=== PATIENT | female | born 1985 | race Caucasian/White ===

== ENCOUNTER 2017-11-30 11:40 | Inpatient (IN) | payer BC, OTHER ==
[2017-11-30] VITALS (33 sets, daily range): BP systolic 106–136; BP diastolic 62–84
[~2017-11-30] VITALS: Ht 167.6 cm; Wt 67.7 kg
[~2017-11-30 11:40] MED LIST: DOCU100C37 PO; IBUP-1780 PO; OXYC-465 PO
[2017-11-30] MEDS ORDERED: D5 LR IV SOLUTION 1,000 ML IV ONE (11:43)
[2017-11-30] MEDS ORDERED: D5 LR IV SOLUTION 1,000 ML IV SCH (12:22)
[2017-11-30] MEDS ORDERED: LACTATED RINGERS 1,000 ML IV ONE (12:27)
[2017-11-30] MEDS ORDERED: LIDOCAINE/EPI 2% 1:200,00 (XYLOCAINE) 10 ML VIAL INJ PRN (12:30)
[2017-11-30] MEDS ORDERED: CLINDAMYCIN 900 MG/50 ML IVPB 50 ML IV SCH (12:30)
[2017-11-30] MEDS ORDERED: CATHETER FLUSH 10 ML SYR IV PRN (12:30)
[2017-11-30 12:32] LABS: BASOPHILS % (AUTO) 0 % (0-10); EOSINOPHILS % (AUTO) 1 % (0-10); HEMATOCRIT 36 % (35-52); LYMPHOCYTES # (AUTO) 1.4 X 10^3 (1.0-4.0); LYMPHOCYTES % (AUTO) 20 % (12-44); MEAN CORPUSCULAR HEMOGLOBIN 28 PG (25-34); MEAN CORPUSCULAR HGB CONC 34 G/DL (32-36); MEAN CORPUSCULAR VOLUME 84 FL (80-99); MEAN PLATELET VOLUME 11.9 FL (7.4-10.4); MONOCYTES # (AUTO) 0.5 X 10^3 (0.0-1.0); MONOCYTES % (AUTO) 8 % (0-12); NEUTROPHILS % (AUTO) 71 % (42-75); PLATELET COUNT 151 10^3/uL (130-400); RED BLOOD COUNT 4.25 10^6/uL (4.35-5.85); RED CELL DISTRIBUTION WIDTH 13.3 % (10.0-14.5)
[2017-11-30 12:33] LABS: BILIRUBIN,URINE NEGATIVE (NEGATIVE); CLARITY,URINE CLEAR; COLOR,URINE YELLOW; GLUCOSE, URINE (UA) NEGATIVE (NEGATIVE); KETONES,URINE NEGATIVE (NEGATIVE); LEUKOCYTE ESTERASE ,URINE 1+ (NEGATIVE); NITRITE,URINE NEGATIVE (NEGATIVE); PH,URINE 6 (5-9); PROTEIN,URINE NEGATIVE (NEGATIVE); UROBILINOGEN,URINE NORMAL (NORMAL)
[2017-11-30 12:40] LABS: BACTERIA,URINE FEW /HPF
[2017-11-30] MEDS ORDERED: SUFENTA 0.6MCG/ML BUPIVA 0.125 100 ML ONE (13:12)
[2017-11-30] MEDS ORDERED: OXYTOCIN/NORMAL SALINE 500 ML IV SCH (13:58)
[2017-11-30] MEDS ORDERED: MEASLES,MUMPS,RUBELLA 1 EA INJ SC ONE (14:00)
[2017-11-30] MEDS ORDERED: TETANUS,DIPTH,PERTUSS P/F (BOOSTRIX) 0.5 ML VIAL IM ONE (14:00)
[2017-11-30] MEDS ORDERED: BENZOCAINE/MENTHOL (DERMOPLAST) 56 ML CAN TP PRN (14:00)
[2017-11-30] MEDS ORDERED: ONDANSETRON 4 MG/2 ML (SDV) Z0FRAN IVP PRN (14:00)
[2017-11-30] MEDS ORDERED: LACTATED RINGERS 1,000 ML IV SCH (14:02)
--- NOTE | 2017-11-30 14:02 | History & Physical ---
History and Physical Date Seen by Provider: Nov 30, 2017 Time Seen by Provider: 14:00 This patient is a 32-year-old white female whose first delivery occurring in less than 2 hours of labor. She was seen in clinic on this date and found to be having occasional contractions but was dilated between 4-5 cm where 4 days ago she was less than 2 cm. Presenting part is the vertex at the +1 to +2 station. Her sister is significant for GBS positive urine culture. She denied ruptured membranes or bleeding. She was sent to labor and delivery for management including prophylactic antibiotics for GBS. Allergies are to penicillin Medications are vitamins Past medical history, past surgical history, obstetric history, family history, social histories are per the antepartum record HEENT exam is normal Neck is supple no lymphadenopathy no thyromegaly Abdomen is gravid soft nontender nondistended Extreme show no clubbing cyanosis. There is no Homans sign. OB exam is as noted above. Assessment and plan 38-6/7 weeks' gestation in labor with a history of rapid progress and a history of a GBS positive culture. Patient has been admitted and started on Cleocin for GBS prophylaxis secondary to intolerance of penicillins. We anticipate a vaginal delivery probably early afternoon Allergies and Home Medications Allergies Coded Allergies: Penicillins (Unverified Allergy, Unknown, 10/28/11) Home Medications Docusate Sodium 100 Mg Capsule, 100 MG PO BID Prescribed by: HAILEY SHEARER on 07/30/16 0739 Ibuprofen 800 Mg Tablet, 800 MG PO Q6HR Prescribed by: HAILEY SHEARER on 07/30/16 0739 Oxycodone HCl/Acetaminophen 1 Each Tablet, 1-2 TAB PO Q4H PRN for PAIN Prescribed by: HAILEY SHEARER on 07/30/16 0739 Patient Home Medication List Home Medication List Reviewed: Yes Clinical Quality Measures DVT/VTE Risk/Contraindication: Risk Factor Score Per Nursin RFS Level Per Nursing on Admit: 1=Low/No VTE PPX HAILEY SILVA MD Nov 30, 2017 2:02 pm
[2017-11-30] MEDS ORDERED: METOCLOPRAMIDE INJ 10 MG/2 ML (REGLAN) IV PRN (14:15)
[2017-11-30] MEDS ORDERED: diphenhydrAMINE 50 MG/ML INJ (BENADRYL) IV PRN (14:15)
[2017-11-30] MEDS ORDERED: EPIDURAL (SUFENTA 0.6MCG/ML BUPIVA 0.125%) 100 ML BAG EPI SCH (14:15)
[2017-11-30] MEDS ORDERED: ONDANSETRON 4 MG/2 ML (SDV) Z0FRAN IV PRN (14:15)
[2017-11-30] MEDS ORDERED: NALOXONE 0.4 MG/ML 1 ML (NARCAN) VIAL IV PRN ×2 (14:15)
[2017-11-30] MEDS: KETOROLAC 30 MG/ML VIAL IV SCH ×2 (17:23→23:45)
[2017-11-30] MEDS ORDERED: METHYLERGONOVINE 0.2 MG/ML (METHERGINE) AMP ONE (17:28)
[2017-11-30] MEDS ORDERED: METHYLERGONOVINE 0.2 MG/ML (METHERGINE) AMP IM ONE (18:00)
[2017-11-30] MEDS: DOCUSATE SODIUM 100 MG (COLACE) CAP PO SCH (20:15)
--- NOTE | 2017-12-01 03:18 | OPERATIVE REPORT ---
DATE OF SERVICE: 11/30/2017 DELIVERY NOTE The patient delivered by term spontaneous vaginal delivery at 38 and 5/7 weeks gestation a viable male with Apgars of 8 and 9 at 1 and 5 minutes respectively, weight of 7 pounds 14 ounces, time of 17:09 and cord ABG that is pending. The delivery was accomplished over a midline episiotomy that was performed as the perineum distended with the baby in an OP ____ that gradually rotated to an OA as the baby delivered. The episiotomy was performed per the patient's request as she could not push the baby through the perineum. Episiotomy was performed under the local augmentation of the epidural with 1% Lidocaine with epinephrine in the perineum. The infant delivered promptly episiotomy. The was bulb suctioned on delivery of the head and again on completion of delivery. The umbilical cord was doubly clamped, father cut the cord and the baby was passed to mom's abdomen. The placenta delivered spontaneously Peoples. It was quite large, but normal with a 3-vessel cord. The cervix, vagina, rectum and perineum were examined after delivery of the placenta. The midline episiotomy was repaired in the usual manner with a 3-0 Vicryl suture. There were no other repairs required as the other tissue was intact. Sponge and needle counts were correct on completion of the delivery and repair. Estimated blood loss was around 400 mL. The patient was given a dose of Methergine IM at 0.2 mg secondary to some persistent recurrent uterine atony. The blood loss was controlled with good bedside care from the nurse with uterine massage and eventually with the Methergine. The mom remained in the LDR for recovery and the baby remained with the mom. Job ID: [id number] DocumentID: [id number] Dictated Date: 11/30/2017 17:37:21 Process Specialist Date: 12/01/2017 03:17:40 Dictated By: HAILEY SILVA MD
[2017-12-01 04:21] VITALS: BP 96/53
[2017-12-01] MEDS: oxyCODONE/APAP 10/325MG (PERCOCET 10) TABLET PO PRN ×2 (04:21→12:20)
[2017-12-01] MEDS: KETOROLAC 30 MG/ML VIAL IV SCH (06:46)
--- NOTE | 2017-12-01 07:58 | Progress Note-Standard ---
Standard Progress Note Progress Notes/Assess & Plan Date Seen by Provider: Dec 01, 2017 Time Seen by Provider: 07:57 Progress/Assessment & Plan This patient without complaint. She is ambulating, voiding, tolerating well, has good pain control. Vital Signs Date Time Temp Pulse Resp B/P (MAP) Pulse Ox O2 Delivery O2 Flow Rate FiO2 12/01/17 04:21 97.2 66 18 96/53 (67) 98 Room Air 11/30/17 23:45 97.6 72 18 108/62 (77) 98 Room Air 11/30/17 20:15 98.1 87 18 114/73 (87) 98 Room Air 11/30/17 18:45 98.4 73 18 109/77 (88) Room Air 11/30/17 18:30 78 18 106/67 (80) Room Air 11/30/17 18:15 73 18 123/63 (83) Room Air 11/30/17 18:10 98.1 11/30/17 18:00 71 18 118/65 (82) Room Air 11/30/17 17:45 71 18 112/66 (81) Room Air 11/30/17 17:40 98.4 11/30/17 17:30 71 18 116/71 (86) Room Air 11/30/17 17:27 71 18 110/74 (86) Room Air 11/30/17 17:21 98.6 11/30/17 17:15 98.6 75 18 111/65 (80) Room Air 11/30/17 17:09 85 18 119/73 (88) Room Air 11/30/17 16:50 98.0 75 18 124/75 (91) 100 Room Air 11/30/17 16:45 69 18 120/79 (93) 100 Room Air 11/30/17 16:30 69 18 100 Room Air 11/30/17 16:15 98.4 97 18 136/79 (98) 100 Room Air 11/30/17 16:00 69 18 109/67 (81) 100 Room Air 11/30/17 15:45 69 18 110/70 (83) 99 Room Air 11/30/17 15:30 98.1 77 18 116/78 (91) 100 Room Air 11/30/17 15:15 75 18 115/81 (92) 100 Room Air 3/12/18 15:00 67 18 118/75 (89) 100 Room Air 11/30/17 14:45 75 18 109/76 (87) 100 Room Air 11/30/17 14:30 70 18 120/79 (93) 100 Room Air 11/30/17 14:15 94 18 120/78 (92) 100 Room Air 11/30/17 14:00 99.1 74 18 114/67 (83) 100 Room Air 11/30/17 13:53 75 18 116/69 (85) 100 Room Air 11/30/17 13:48 70 18 115/78 (90) 100 Room Air 11/30/17 13:46 73 18 114/78 (90) 100 Room Air 11/30/17 13:45 71 18 119/84 (96) 100 Room Air 11/30/17 13:40 75 18 121/84 (96) 100 Room Air 11/30/17 13:34 73 18 115/80 (92) 100 Room Air 11/30/17 13:30 75 18 116/75 (89) Room Air 11/30/17 13:28 73 18 116/75 (89) Room Air 11/30/17 13:00 68 18 111/73 (86) Room Air 11/30/17 11:51 75 18 113/80 (91) Room Air I & O 12/01/17 06:59 Intake Total 1050 ml Balance 1050 ml Vital signs are stable. Patient is afebrile. Fundus is firm below the umbilicus and nontender. Extremities show no clubbing or cyanosis. There is no Homans sign. Assessment and plan day number 1 status post spontaneous vaginal delivery doing well. Plan is routine convalescent. May discharge home tomorrow HAILEY SILVA MD Dec 01, 2017 7:58 am
[2017-12-01] MEDS ORDERED: IBUP-1780 PO (08:00)
[2017-12-01] MEDS ORDERED: OXYC-465 PO (08:00)
[2017-12-01] MEDS ORDERED: DOCU100C37 PO (08:00)
--- NOTE | 2017-12-01 08:01 | Discharge Instructions ---
Discharge Instructions Discharge Medications New, Converted or Re-Newed RX: RX on Chart Patient Instructions Patient Instructions: As directed Return to The Hospital For: As directed Activity & Diet Discharge Diet: No Restrictions Activity as Tolerated: No Orders-Post D/C & Referrals Follow Up Appt: Call to make follow up appt. for patient in 4 weeks. Activity Per routine post vaginal delivery instructions. Diet as tolerated Patient may shower or tub bathe as desired. HAILEY SILVA MD Dec 01, 2017 8:01 am
[2017-12-01 10:30] VITALS: BP 105/71
[2017-12-01] MEDS: DOCUSATE SODIUM 100 MG (COLACE) CAP PO SCH (10:30)
[2017-12-01] MEDS ORDERED: IBUPROFEN 800 MG (MOTRIN) TAB PO SCH (14:00)
--- NOTE | 2017-12-01 14:52 | Anesthesia-Regional Post-Op ---
Regional Patient Condition Mental Status: Alert, Oriented x3 Circulation: Same as Pre-Op Headache: Absent Sensation: Full Recovery Motor Block: Absent Post Op Complications Complications None Follow Up Care/Instructions Patient Instructions None needed. Anesthesia/Patient Condition Patient was seen by JUANCHO Morrissey this morning and she was doing well, no complaints, stable vital signs, no apparent adverse anesthesia problems. When I went to see patient at 1415, she was discharged but RN reported no complications related to anesthesia. BERTIN REDD DO Dec 01, 2017 14:52
== END 2017-12-01 12:35 | disposition home or self-care (01) | DRG 774 ==
LOC: LDRP 11:40
PROVIDERS: ADMIT Obstetrics & Gynecology; ATTEND Obstetrics & Gynecology
PROC: 10E0XZZ Delivery of Products of Conception, External Approach (ICD-10-PCS; principal; 2017-11-30)
PROC: 0W8NXZZ Division of Female Perineum, External Approach (ICD-10-PCS; 2017-11-30)
DX: O26.893 Other specified pregnancy related conditions, third trimester (principal); O99.820 Streptococcus B carrier state complicating pregnancy; O72.1 Other immediate postpartum hemorrhage; O09.893 Supervision of other high risk pregnancies, third trimester; Z3A.38 38 weeks gestation of pregnancy; Z37.0 Single live birth
CPT/HCPCS: 36415; 81000; 85025; 86850; 86900; 86901; 87077; 87088

== ENCOUNTER 2020-05-21 08:43 | Inpatient (IN) | payer OTHER ==
[2020-05-21] VITALS (26 sets, daily range): BP systolic 100–118; BP diastolic 60–75
[~2020-05-21] VITALS: Ht 167.7 cm; Wt 76.9 kg
--- NOTE | 2020-05-21 08:43 | NUR ---
CHAU OCAMPO presented to unit from Home, accompanied by , with c/o C/O CONTRACTIONS. CHAU OCAMPO S weighed, gowned, voided, and to bed. EFHM and TOCO applied, VS taken. CHAU OCAMPO S oriented to bed controls, call light, TV, heat, and A/C controls.
--- NOTE | 2020-05-21 09:45 | NUR ---
Dr. Tim notified of patient's arrival, complaints, exam, and EFM/TOCO tracing. New orders received.
[2020-05-21] MEDS ORDERED: D5 LR IV SOLUTION 1,000 ML IV ONE (09:48)
[2020-05-21] MEDS: DOCUSATE SODIUM 100 MG (COLACE) CAP PO SCH (09:50)
[2020-05-21] MEDS ORDERED: D5 LR IV SOLUTION 1,000 ML IV SCH (10:00)
[2020-05-21] MEDS: D5 LR IV SOLUTION 1,000 ML IV SCH (12:10)
[2020-05-21] MEDS ORDERED: OXYTOCIN PRE-MIX DRIP 500 ML IV SCH ×2 (12:10→18:01)
--- NOTE | 2020-05-21 12:15 | NUR ---
Report received from sunita RIVERS at this time. Pt status being changed from clinic to inpatient. Pt will get epidural, RN is to call Dr Turcios after epidural is placed, will come up to [facility] after epidural.
[2020-05-21 12:18] LABS: BASOPHILS % (AUTO) 0 % (0-10); EOSINOPHILS % (AUTO) 1 % (0-10); HEMATOCRIT 30 % (35-52); HEMOGLOBIN 9.8 G/DL (11.5-16.0); LYMPHOCYTES # (AUTO) 1.2 X 10^3 (1.0-4.0); LYMPHOCYTES % (AUTO) 17 % (12-44); MEAN CORPUSCULAR HEMOGLOBIN 27 PG (25-34); MEAN CORPUSCULAR HGB CONC 33 G/DL (32-36); MEAN CORPUSCULAR VOLUME 81 FL (80-99); MEAN PLATELET VOLUME 10.7 FL (7.4-10.4); MONOCYTES # (AUTO) 0.5 X 10^3 (0.0-1.0); MONOCYTES % (AUTO) 7 % (0-12); NEUTROPHILS # (AUTO) 5.3 X 10^3 (1.8-7.8); NEUTROPHILS % (AUTO) 75 % (42-75); PLATELET COUNT 152 10^3/uL (130-400); RED CELL DISTRIBUTION WIDTH 13.7 % (10.0-14.5); WHITE BLOOD COUNT 7.1 10^3/uL (4.3-11.0)
[2020-05-21 12:18] LABS: BILIRUBIN,URINE NEGATIVE (NEGATIVE); CLARITY,URINE CLEAR; COLOR,URINE YELLOW; GLUCOSE, URINE (UA) NEGATIVE (NEGATIVE); KETONES,URINE NEGATIVE (NEGATIVE); LEUKOCYTE ESTERASE ,URINE NEGATIVE (NEGATIVE); NITRITE,URINE NEGATIVE (NEGATIVE); PROTEIN,URINE NEGATIVE (NEGATIVE)
[2020-05-21 12:25] LABS: BACTERIA,URINE NEGATIVE /HPF; SQUAMOUS EPITHELIAL CELL,UR 0-2 /HPF; WBC,URINE RARE /HPF
[2020-05-21] MEDS ORDERED: fentaNYL 2 mcg/ml BUPIVA 0.125 100 ML ONE (12:55)
[2020-05-21] MEDS ORDERED: LIDOCAINE PF 2% 5 ML (XYLOCAINE) VIAL ONE (13:08)
[2020-05-21] MEDS ORDERED: BUPIVACAINE 0.25% 30 ML (SENSORCAINE) VIAL ONE (13:08)
[2020-05-21] MEDS ORDERED: fentaNYL INJECTION 100 MCG/2 ML AMP ONE (13:08)
--- NOTE | 2020-05-21 13:15 | History & Physical ---
History and Physical Date Seen by Provider: May 21, 2020 Time Seen by Provider: 12:10 this patient presented with complaint oyear-old gravid female currently at almost 38 weeks gestation.patient denies rupture membranes or bleeding Her GBS culture was negative.she has had no problems with this . She has demonstrated change demonstrated change i from 3.5 cm to almost 6 cm now allergies are to penicillin Medications are vitamins. Medical social and surgical histories a are per the antepartum record HEENT exam is normal Neck is supple Heart has a regular rhythm Chest is clear auscultation bilaterally Abdomen is gravid soft nontender Extremities show no clubbing or cyanosi Pelvic exam shows a cervix 6 cm dilate and 0 to +1 station vertex presentation Assessment and plan 37+ week in labor. Patient and we anticipate a vaginal delivery. She will be allo an epidural 37 week spontaneous labor Allergies and Home Medications Allergies Coded Allergies: Penicillins (Unverified Allergy, Unknown, 10/28/11) Home Medications Docusate Sodium 100 Mg Capsule, 100 MG PO BID Prescribed by: HAILEY SHEARER on 12/01/17 0800 Ibuprofen 800 Mg Tablet, 800 MG PO Q6H Prescribed by: HAILEY SHEARER on 12/01/17 0800 Oxycodone HCl/Acetaminophen 1 Each Tablet, 1-2 TAB PO Q4HR PRN for PAIN-MODERATE Prescribed by: HAILEY SHEARER on 12/01/17 0800 Patient Home Medication List Home Medication List Reviewed: Yes HAILEY SILVA MD May 21, 2020 13:15
[2020-05-21] MEDS ORDERED: LACTATED RINGERS 1,000 ML IV SCH (13:37)
[2020-05-21] MEDS ORDERED: ONDANSETRON 4 MG/2 ML (SDV) Z0FRAN IV PRN (13:45)
[2020-05-21] MEDS ORDERED: EPIDURAL (fentaNYL 2 MCG/ML BUPIVA 0.125%)100 ML BAG EPI PRN (13:45)
[2020-05-21] MEDS ORDERED: NALOXONE 0.4 MG/ML 1 ML (NARCAN) VIAL IV PRN (13:45)
[2020-05-21] MEDS ORDERED: diphenhydrAMINE 50 MG/ML INJ (BENADRYL) IV PRN (13:45)
--- NOTE | 2020-05-21 14:00 | NUR ---
Dr iTm notified that pt has received epidural, is comfortable, and RN ready for Dr to come [facility] at any time.
--- NOTE | 2020-05-21 15:10 | NUR ---
Matheus Marie CRNA (auto parts salesperson) is notified at this time epidural seems to be wearing off. Pt CO pain with UC regardless of bolus doses.
--- NOTE | 2020-05-21 15:20 | NUR ---
Sancho Banks at bedside for epidural eval
--- NOTE | 2020-05-21 16:00 | NUR ---
Dr Tim updated on pt report at this time. SVE 7cm by this RN. Sitting high fowlers now for increased cervical pressure, pitocin rate at 12, UC 2-3 min apart. FHT strip reactive, looks good at this time. No new orders received.
--- NOTE | 2020-05-21 17:00 | NUR ---
Dr Tim called by this RN. pt 10cm, feeling pressure with UC. coming for delivery. Room setup for delivery.
[2020-05-21] MEDS ORDERED: METHYLERGONOVINE 0.2 MG/ML (METHERGINE) AMP ONE (17:34)
[2020-05-21] MEDS ORDERED: METHYLERGONOVINE 0.2 MG/ML (METHERGINE) AMP IM ONE (17:40)
[2020-05-21] MEDS ORDERED: WITCH HAZEL(TUCKS) 40 EA JAR TOP PRN (18:15)
[2020-05-21] MEDS ORDERED: BENZOCAINE/MENTHOL (DERMOPLAST) 60 ML CAN TP PRN (18:15)
[2020-05-21] MEDS ORDERED: MEASLES,MUMPS,RUBELLA 1 EA INJ SC ONE (18:15)
[2020-05-21] MEDS ORDERED: TETANUS,DIPTH,PERTUSS P/F (BOOSTRIX) 0.5 ML VIAL IM ONE (18:15)
[2020-05-21] MEDS ORDERED: DIBUCAINE (NUPERCAINAL) 1% OINT 30 GM TOP PRN (18:15)
[2020-05-21] MEDS ORDERED: ONDANSETRON 4 MG/2 ML (SDV) Z0FRAN IVP PRN (18:15)
--- NOTE | 2020-05-21 19:05 | NUR ---
1745: Recovery period begins at this time. Fundus firm, midline, 1 below umbilicus, light bleeding. Pt has received methergine for heavy bleeding after delivery, EBL 400. RN will continue to monitor. FOB holding Pt denies needs at this time. Call light within reach. RN in and out of room frequently. 1800: Fundus firm, midline, 1 below umbilicus, moderate bleeding. Pt currently well. Pt denies needs at this time. Call light within reach. RN in and out of room frequently. 1815: Fundus firm, midline, 1 below umbilicus, light bleeding. Pt currently well. Pt denies needs at this time. Call light within reach. RN in and out of room frequently. 1830: Fundus firm, midline, 1 below umbilicus, moderate bleeding. No clots present. Pt denies needs at this time. Call light within reach. RN in and out of room frequently. 1845: Fundus firm, midline, 1 below umbilicus, moderate bleeding. No clots. Pericare, peripad change, linen change by this RN. Pt left leg remain very heavy. RN will not get pt up to wheelchair/bathroom until pt is able to lift both legs off of bed independently. Pt denies needs at this time. Call light within reach. RN in and out of room frequently. 1900:Fundus firm, midline, 1 below umbilicus, light bleeding. Pt left leg is still heavy. RN will not get pt up to wheelchair/bathroom until pt is able to lift both legs off of bed independently. Epidural catheter DC'd. Pt denies needs at this time. Call light within reach. RN in and out of room frequently. 190: Report given to Cally RIVERS at this time.
--- NOTE | 2020-05-21 19:25 | NUR ---
assisted up to BR. +void. [place]-care instructions given, returned demonstration. v-pad and panties in place.
--- NOTE | 2020-05-21 19:30 | NUR ---
pt transferred to room room 310 via w/c with this RN, and @ side. familiarized with room surroundings. call light within reach.
[2020-05-21] MEDS: KETOROLAC 30 MG/ML VIAL IVP SCH (19:46)
[2020-05-21] MEDS: CATHETER FLUSH 10 ML SYR IV SCH (19:47)
--- NOTE | 2020-05-21 19:48 | NUR ---
initial shift assessment completed, see interventions for further.
[2020-05-21] MEDS ORDERED: OXYC1TAB87 PO (19:49)
[2020-05-21] MEDS ORDERED: IBUP-1780 PO (19:49)
[2020-05-21] MEDS ORDERED: DOCU100C37 PO (19:49)
--- NOTE | 2020-05-21 19:50 | Discharge Inst-Surgical ---
Discharge Inst-Surgical Depart Medication/Instructions New, Converted or Re-Newed RX: RX on Chart Consults/Follow Up Patient Instructions: as directed Orders & Referrals Follow Up Appt: Call to make follow up appt. for patient in 4 weeks. Activity Per routine post vaginal delivery instructions. Please call in RX to patient pharmacy. Diet as tolerated Patient may shower or tub bathe as desired. Activity Activity as Tolerated: No Diet Discharge Diet: No Restrictions HAILEY SILVA MD May 21, 2020 19:50
[2020-05-22] MEDS: CATHETER FLUSH 10 ML SYR IV SCH ×3 (02:29→22:00)
[2020-05-22] MEDS: KETOROLAC 30 MG/ML VIAL IVP SCH ×4 (02:29→18:15)
[2020-05-22 02:33] VITALS: BP 101/67
[2020-05-22] MEDS: oxyCODONE/APAP 5/325MG (PERCOCET 5) TABLET PO PRN ×2 (02:33→22:06)
--- NOTE | 2020-05-22 02:33 | NUR ---
scheduled Toradol IV given. see eMar for further.
--- NOTE | 2020-05-22 03:00 | OPERATIVE REPORT ---
DATE OF SERVICE: 05/21/2020 DELIVERY NOTE The patient delivered by term spontaneous vaginal delivery a viable male with Apgars of 8 and 9 at 1 and 5 minutes respectively, weight of 7 pounds and 9 ounces. Midline episiotomy was required to shorten the second stage of delivery secondary to a depressed heart rate. Delivery was accomplished over the midline episiotomy that was performed with the heart rate down into the 80s and 90s for over 3 minutes and with mom pushing the baby down to and the perineal body obstructing delivery of the baby and mom not able to expel the baby through the perineum. In order to shorten the second stage and relieve the decreased heart rate, episiotomy was performed. Delivery was then accomplished quickly and easily and the was allowed to resuscitate and recover while the umbilical cord was still attached. Once the cord was pulseless, the umbilical cord was doubly clamped, father cut the cord, the baby was passed to mom's abdomen. The infant had been bulb suctioned on delivery of the head and again on completion of delivery. Cord bloods were obtained. The cord blood pH is pending. The placenta delivered spontaneously Peoples. It was a fairly large bilobed placenta with a large area of velamentous blood vessels. The placenta was sent to pathology for permanent section. The cervix, vagina, rectum, and perineum were examined and found intact, except for the midline episiotomy, which was repaired with a single suture of 3-0 Vicryl Rapide in the usual manner to good hemostasis and good reapproximation. The uterus was relatively atonic although was stimulation and massaged, it would contract, it would fairly promptly relax and patient had fairly significant bleeding with the blood loss around 450 mL. The patient was given a single dose of Methergine IM to effect better embolic effect and we were getting with the Pitocin. She had good effect and the blood loss decreased. Sponge and needle counts were correct on completion of the delivery and repair. Estimated blood loss again was around 450 mL. The patient tolerated the delivery well and remained in the LDR for recovery. The baby remained with the mom. Job ID: [id number] DocumentID: [id number] Dictated Date: 05/21/2020 17:46:44 Measurement Department Chief Clerk Date: 05/22/2020 03:00:01 Dictated By: HAILEY SILVA MD [facility]
--- NOTE | 2020-05-22 07:24 | NUR ---
report given to TITA [place].
--- NOTE | 2020-05-22 07:36 | Progress Note ---
Standard Progress Note Progress Notes/Assess & Plan Date Seen by a Provider: May 22, 2020 Time Seen by a Provider: 07:34 Progress/Assessment & Plan this patient is without complaint. She is ambulating, voiding, tolerating oral intake well has good pain control. Vital Signs 05/22/20 02:33 Temp 36.4 Pulse 69 Resp 18 B/P (MAP) 101/67 (78) Pulse Ox 97 O2 Delivery Room Air vital signs are stable. Patient is afebrile. Fundus is firm below the umbilicus and nontender. Extremities show no clubbing or cyanosis. There is no Homans sign. Assessment and plan day number 1 status post term spontaneous vaginal delivery at 37 weeks gestation. Patient is doing well and will have routine convalescence care with discharge home when necessary her request Final Diagnosis 37 week spontaneous vaginal delivery HAILEY SILVA MD May 22, 2020 07:35
[2020-05-22] MEDS: DOCUSATE SODIUM 100 MG (COLACE) CAP PO SCH ×2 (08:21→21:00)
[2020-05-22 08:30] VITALS: BP 99/66
[2020-05-22 11:56] VITALS: BP 96/61
[2020-05-22] MEDS: D5 LR IV SOLUTION 1,000 ML IV SCH (12:00)
--- NOTE | 2020-05-22 12:08 | Anesthesia-Regional Post-Op ---
Regional Patient Condition Mental Status: Alert, Oriented x3 Circulation: Same as Pre-Op Headache: Absent Sensation: Full Recovery Motor Block: Absent Post Op Complications Complications None Follow Up Care/Instructions Patient Instructions None needed. Anesthesia/Patient Condition Patient is doing well, no complaints, stable vital signs, no apparent adverse anesthesia problems. No complications reported per nursing. CASSIDY RIZO CRNA May 22, 2020 12:08
[2020-05-22] MEDS: IBUPROFEN 800 MG (MOTRIN) TAB PO SCH (14:09)
--- NOTE | 2020-05-22 14:12 | NUR ---
REPORT GIVEN TO MELBA RIVERS
[2020-05-22 20:00] VITALS: BP 110/61
[2020-05-23 04:00] VITALS: BP 118/61
[2020-05-23] MEDS: D5 LR IV SOLUTION 1,000 ML IV SCH ×2 (06:02→06:10)
[2020-05-23] MEDS: IBUPROFEN 800 MG (MOTRIN) TAB PO SCH (06:10)
--- NOTE | 2020-05-23 08:15 | Progress Note ---
Standard Progress Note Progress Notes/Assess & Plan Date Seen by a Provider: May 23, 2020 Time Seen by a Provider: 08:14 Progress/Assessment & Plan this patient is without complaint. She is ambulating, voiding, tolerating oral intake well has good pain control. Vital Signs 05/22/20 02:33 Temp 36.4 Pulse 69 Resp 18 B/P (MAP) 101/67 (78) Pulse Ox 97 O2 Delivery Room Air vital signs are stable. Patient is afebrile. Fundus is firm below the umbilicus and nontender. Extremities show no clubbing or cyanosis. There is no Homans sign. Assessment and plan day number 1 status post term spontaneous vaginal delivery at 37 weeks gestation. Patient is doing well and will have routine convalescence care with discharge home when necessary her request May 23, 2020 Patient is without complaint. She is ablating, voiding, tolerating oral intake well has good pain control. Vital Signs Date Time Temp Pulse Resp B/P (MAP) Pulse Ox O2 Delivery O2 Flow Rate FiO2 05/23/20 04:00 37.0 72 18 118/61 (80) 100 Room Air 05/23/20 00:00 37.0 05/22/20 22:06 36.6 05/22/20 21:00 100 Room Air 05/22/20 20:00 36.6 78 20 110/61 (77) 100 Room Air 05/22/20 11:56 36.6 74 16 96/61 (73) 100 Room Air 05/22/20 08:30 36.3 74 16 99/66 (77) 100 Room Air vital signs are stable. Patient is afebrile. Fundus is firm below the umbilicus and nontender. Extremities show no clubbing or cyanosis. There is no Homans sign. Assessment and plan day number 2 doing well. Plan is for discharge. Patient may room in if y is not ready for discharge HAILEY SILVA MD May 23, 2020 08:15
[2020-05-23 08:55] VITALS: BP 125/85
== END 2020-05-23 13:15 | disposition home or self-care (01) | DRG 806 ==
LOC: WSo 08:43 → LDRP 08:43 → WSo 12:00 → LDRP 12:00 → WS 14:46 → LDRP 19:31
PROVIDERS: ADMIT Obstetrics & Gynecology; ATTEND Obstetrics & Gynecology
PROC: 10E0XZZ Delivery of Products of Conception, External Approach (ICD-10-PCS; principal; 2020-05-21)
PROC: 0W8NXZZ Division of Female Perineum, External Approach (ICD-10-PCS; 2020-05-21)
DX: O76 Abnormality in fetal heart rate and rhythm complicating labor and delivery (principal); O72.1 Other immediate postpartum hemorrhage; Z37.0 Single live birth; Z88.1 Allergy status to other antibiotic agents; Z3A.37 37 weeks gestation of pregnancy; Z23 Encounter for immunization
CPT/HCPCS: 36415; 81000; 85025; 86850; 86900; 86901; 90715; 99212

== ENCOUNTER → 2022-01-21 | Outpatient (CLI) | payer OTHER ==
[~2022-01-21] MED LIST changes: -OXYC-465 PO; +OXYC-556 PO; +OXYC1TAB87 PO
== END ==
LOC: LABNPT 13:48
PROVIDERS: ATTEND Obstetrics & Gynecology
DX: Z30.9 Encounter for contraceptive management, unspecified (principal)
CPT/HCPCS: 84443